=== PATIENT | female | born 1950 | race Caucasian/White ===

== ENCOUNTER 2017-11-26 08:38 | Emergency (ER) | payer MEDICARE, OTHER ==
[~2017-11-26] VITALS: Ht 167.6 cm; Wt 99.8 kg
[~2017-11-26 08:38] MED LIST: AMLO5 PO; ASPI325 PO; ASPI81CH PO; GLIP2.5ER PO; HYDCHL25 PO; INSDET100 SQ; LEVSOD50 PO; LIRA0.6P SC; LISHYD2025 PO; METF500 PO; Multivitamin1 EAC1 PO; NEBI10 PO; Plavix75 MG PO; VITB2 PO; ZESTRIL40 MG PO
[2017-11-26] MEDS ORDERED: Prednisone20 MG PO (09:20)
== END 2017-11-26 09:47 | disposition home or self-care (01) ==
LOC: ER 08:38
DX: L25.9 Unspecified contact dermatitis, unspecified cause (principal); I10 Essential (primary) hypertension; E11.9 Type 2 diabetes mellitus without complications; I25.10 Atherosclerotic heart disease of native coronary artery without angina pectoris; D64.9 Anemia, unspecified; E78.5 Hyperlipidemia, unspecified; Z79.4 Long term (current) use of insulin; Z79.899 Other long term (current) drug therapy; Z88.8 Allergy status to other drugs, medicaments and biological substances; Z95.5 Presence of coronary angioplasty implant and graft
CPT/HCPCS: J1100

== ENCOUNTER → 2018-12-13 | Outpatient (CLI) | payer MEDICARE ==
[~2018-12-13] MED LIST changes: +Prednisone20 MG PO
== END | disposition home or self-care (01) ==
LOC: LAB SHORT 18:17 → LAB 18:17
DX: K21.9 Gastro-esophageal reflux disease without esophagitis (principal)
CPT/HCPCS: 87338

== ENCOUNTER → 2019-12-10 | Outpatient (CLI) | payer MEDICARE ==
[2019-12-10 17:53] LABS: Percent Saturation 11.5 % (15.0-50.0)
[2019-12-10 17:56] LABS: Alanine Aminotransfer (ALT/SGP 23 U/L (12-78); Albumin, Blood 3.4 g/dL (3.4-5.0); Albumin/Globulin Ratio 0.9 (0.8-1.8); Alk Phos 88 U/L (50-136); Anion Gap 6 mmol/L (6-16); Aspartate Aminotrans (AST/SGOT 26 U/L (12-37); Bilirubin, Total 0.6 mg/dL (0.1-1.0); Blood Urea Nitrogen 21 mg/dL (8-24); Bun/Creatinine Ratio 22.4 (12.0-20.0); CO2, Blood 27 mmol/L (21-32); Calcium, Blood 9.1 mg/dL (8.5-10.1); Chloride, Blood 105 mmol/L (98-108); Creatinine, Blood 0.94 mg/dL (0.40-1.00); Globulin, Blood 3.7 g/dL (2.2-4.0); Glomerular Filtration Rate >60 (60-); Glucose, Blood 154 mg/dL (70-99); Potassium, Blood 4.1 mmol/L (3.5-5.5); Sodium, Blood 138 mmol/L (136-145); Total Protein, Blood 7.1 g/dL (6.4-8.2)
== END | disposition home or self-care (01) ==
LOC: LAB 15:09 → LAB SHORT 15:09
PROVIDERS: Internal Medicine Hematology & Oncology
DX: D64.9 Anemia, unspecified (principal)
CPT/HCPCS: 80053; 82728; 83540; 83550

== ENCOUNTER → 2020-06-05 | Outpatient (CLI) | payer MEDICARE, SELFPAY ==
[~2020-06-05] MED LIST changes: +INSULANPEN SC; +TICA90TA PO
[2020-06-05 20:05] LABS: Percent Saturation 20.7 % (15.0-50.0)
[2020-06-06 10:39] LABS: Stool Occult Bld Immuno 1 Negative (NEGATIVE)
== END | disposition home or self-care (01) ==
LOC: LAB 10:01 → LAB SHORT 10:01
PROVIDERS: Internal Medicine Hematology & Oncology; Student in an Organized Health Care Education/Training Program
DX: N18.2 Chronic kidney disease, stage 2 (mild) (principal); D63.1 Anemia in chronic kidney disease
CPT/HCPCS: 82274; 82728; 83540; 83550

== ENCOUNTER 2020-07-26 03:05 | Inpatient (IN) | payer MEDICARE, SELFPAY ==
[~2020-07-26] VITALS: Ht 160 cm; Wt 92.7 kg
[~2020-07-26 03:05] MED LIST changes: -INSULANPEN SC; -TICA90TA PO
[2020-07-26 03:35] LABS: Calcium, Ionized (POC) 1.16 mmol/L (1.10-1.46); Chloride (POC) 96 mmol/L (98-108); Creatinine (POC) 1.1 mg/dL (0.6-1.0); Glucose (ISTAT POC) 539 mg/dL (70-99); Hemoglobin (POC) 11.9 g/dL (12.0-16.0); Potassium (POC) 4.4 mmol/L (3.5-5.5); Sodium (POC) 131 mmol/L (135-148); Total CO2 (POC) 23 mmol/L (21-32)
[2020-07-26 03:56] LABS: BASOPHILS ABSOLUTE AUTO 0.07 K/mm3 (0.00-0.23); BASOPHILS PERCENT AUTO 1 % (0-2); EOSINOPHILS ABSOLUTE AUTO 0.49 K/mm3 (0.00-0.68); EOSINOPHILS PERCENT AUTO 6 % (0-6); Hematocrit 33.7 % (33.0-51.0); Hemoglobin 11.6 g/dL (11.5-16.0); IMMATURE GRAN ABSOLUTE AUTO 0.02 K/mm3 (0.00-0.10); IMMATURE GRAN PERCENT AUTO 0 % (0-1); LYMPHOCYTES ABSOLUTE AUTO 2.73 K/mm3 (0.84-5.20); LYMPHOCYTES PERCENT AUTO 35 % (21-46); MONOCYTES ABSOLUTE AUTO 0.68 K/mm3 (0.16-1.47); MONOCYTES PERCENT AUTO 9 % (4-13); Mean Corpuscular HGB 31.3 pg (26.0-34.0); Mean Corpuscular HGB Conc 34.4 g/dL (31.5-36.5); Mean Corpuscular Volume 91 fL (80-100); Mean Platelet Volume 10.1 fL (9.1-12.4); NEUTROPHILS ABSOLUTE AUTO 3.88 K/mm3 (1.96-9.15); NEUTROPHILS PERCENT AUTO 49 % (41-73); Platelet Count 307 K/mm3 (150-400); RDW Coefficient Variation 11.9 % (11.7-14.2); RDW Standard Deviation 39.5 fL (35.1-46.3); Red Blood Cell Count 3.71 M/mm3 (3.80-5.20); White Blood Cell Count 7.87 K/mm3 (4.00-11.30)
[2020-07-26 04:10] LABS: International Normalized Ratio 0.91; Prothrombin Time Results 9.8 Sec (9.7-11.5)
[2020-07-26 04:11] LABS: Albumin, Blood 3.2 g/dL (3.4-5.0); Albumin/Globulin Ratio 0.8 (0.8-1.8); Bilirubin, Total 0.2 mg/dL (0.1-1.0); Bun/Creatinine Ratio 27.1 (12.0-20.0); Calcium, Blood 9.4 mg/dL (8.5-10.1); Globulin, Blood 4.2 g/dL (2.2-4.0); Potassium, Blood 4.5 mmol/L (3.5-5.5); Total Protein, Blood 7.4 g/dL (6.4-8.2); Troponin I 0.398 ng/mL (0.000-0.040)
--- NOTE | 2020-07-26 07:02 | NUR ---
ADMIT/ASSESSMENT PT ARRIVED FROM SENIOR NETWORK ENGINEER AT 0517 VIA BED. DX STEMI WITH STENT PLACEMENT TO MID RCA. DR HOGAN AND DILEEP AT BEDSIDE. PT A&O. DENIES PAIN OR DISCOMFORT. LUNGS CLEAR ON ROOMAIR. RESP EVEN AND NONLABORED. HEART RATE REGULAR. BP STABLE. TR BAND TO RIGHT WRIST SITE STABLE. ARM BOARD ON. EXPLAINED TO PT TO NO USE RIGHT ARM. BT+ ABD SOFT AND NONTENDER. DENIES N/V. EKG DONE. BLOOD GLUCOSE 467, COVERED WITH 18 UNITS REGULAR INSULIN. BEDSIDE REPORT GIVEN TO ANGELI PALACIOS. PT STARTED ON NS AT 100 ML/HR. PT SITTING UP IN BED WATCHING TV.
--- NOTE | 2020-07-26 09:09 | NUR ---
ASSUMED CARE OF PT, REPORT RCV'D FROM PHILIP FELIX. PT ALERT AND ORIENTED SITTING UP IN BED. PT DENIES CURRENT CHEST PAIN. TR BAND TO RIGHT RADIAL WITH 10 CC AIR. SITE SOFT/NON-TENDER. PT OOB WITH STANDBY ASSIST TO TOILET WITH NO DIFFICULTY, PT DENIES SHORTNESS OF BREATH OR CHEST PAIN. PT CONTINUES TO BE HYPERGLYCEMIC, Q1 BLOOD SUGARS ORDERED. PT STATES SHE IS "UNABLE TO PAY $250 DEDUCTABLE" FOR HER INSULIN, WILL PUT IN PALLIATIVE CARE/SOCIAL SERVICE CONSULT. SEE FULL SHIFT ASSESSMENT
--- NOTE | 2020-07-26 10:55 | NUR ---
Echocardiogram completed.
[2020-07-26 11:58] LABS: CHOL/HDL RATIO 4.3; Cholesterol 171 mg/dL (50-200); HDL Cholesterol 40 mg/dL (>39); LDL/HDL RATIO 1.5; Low Density Lipoprotein Chol 60 mg/dL (0-110); Triglycerides 354 mg/dL (30-160); Very Low Density Lipoprot Chol 70 mg/dL (6-32)
--- NOTE | 2020-07-26 17:02 | NUR ---
NO ACUTE CHANGES THIS SHIFT. PT REMAINS ALERT/ORIENTED, CONTINUES TO DENY CHEST PAIN. PT ABLE TO INDEPENDENTLY AMBULATE TO TOILET, JUST REQUIRES ASSISTANCE WITH LINES/CORDS. VSS T/O SHIFT. PT'S BLOOD GLUCOSE WITHIN NORMAL RANGE AT THIS TIME, LAST 2 HUMULIN DOSAGES HELD. PT'S RIGHT RADIAL ACCESS SITE COVERED WITH CLEAR DRESSING AND ARMBOARD IN PLACE. PT'S SITE BLED THIS MORNING D/T PT USING ARM WHILE ON PHONE. SINCE TR BAND HAS BEEN OFF PT HAS BEEN COMPLIANT WITH NOT USING RIGHT WRIST. NO EVIDENCE OF BLEEDING, SITE REMAINS SOFT, NONTENDER WITH SMALL HEMATOMA THAT IS UNCHANGED FROM THIS AM. WILL REPORT TO ONCOMING NURSE.
[2020-07-26 18:53] LABS: Influenza A, PCR NEGATIVE (NEGATIVE); Influenza B, PCR NEGATIVE (NEGATIVE); Resp Syncytial Virus, PCR NEGATIVE (NEGATIVE); SARS-Cov-2 (COVID-19) PCR, MMC NEGATIVE (NEGATIVE)
--- NOTE | 2020-07-26 19:15 | NUR ---
SHIFT SUMMARY RECIEVED REPORT FROM ANGELI PALACIOS. ASSUMED CARE OF PATIENT. PATIENT A/O, SITTING UP IN BED. TWO RN ASSESSED RIGHT RADIAL SITE WNL, WRIST IMMOBILIZER IN PLACE. PATIENT DENIES DISCOMFORTS. VITALS STABLE. WILL REVIEW ORDERS AND TREAT PRESCRIBED.
--- NOTE | 2020-07-27 | NUR ---
REASSESSMENT NO ACUTE CHANGES FROM PREVIOUS ASSESSMENT. WRIST IMMOBILIZER REMAINS TO RIGHT WRIST WITH ACUTE CHANGES. VITALS STABLE. FLUIDS REMOVED FROM BEDSIDE AND EDUCATED PATIENT REGARDING CURRENT NPO STATUS UNTIL AFTER AM PROCEDURE. PATIENT VERBALIZED UNDERSTANDING. PATIENT DECLINED NEEDS OR DISCOMFORTS. CALL LIGHT WITHIN REACH.
--- NOTE | 2020-07-27 04:00 | NUR ---
REASSESSMENT NO ACUTE CHANGES FROM PREVIOUS ASSESSMENT. PATIENT IN BED WITH EYES CLOSED, NO S/S OF DISTRESS. VITALS STABLE. WRIST IMMOBILIZER TO RIGHT WRIST. CALL LIGHT IN REACH.
[2020-07-27 04:09] LABS: BASOPHILS ABSOLUTE AUTO 0.07 K/mm3 (0.00-0.23); BASOPHILS PERCENT AUTO 1 % (0-2); EOSINOPHILS ABSOLUTE AUTO 0.66 K/mm3 (0.00-0.68); EOSINOPHILS PERCENT AUTO 8 % (0-6); Hematocrit 32.5 % (33.0-51.0); Hemoglobin 11.2 g/dL (11.5-16.0); IMMATURE GRAN ABSOLUTE AUTO 0.04 K/mm3 (0.00-0.10); IMMATURE GRAN PERCENT AUTO 1 % (0-1); LYMPHOCYTES ABSOLUTE AUTO 2.27 K/mm3 (0.84-5.20); LYMPHOCYTES PERCENT AUTO 29 % (21-46); MONOCYTES PERCENT AUTO 8 % (4-13); Mean Corpuscular HGB 31.6 pg (26.0-34.0); Mean Corpuscular HGB Conc 34.5 g/dL (31.5-36.5); Mean Corpuscular Volume 92 fL (80-100); Mean Platelet Volume 9.7 fL (9.1-12.4); NEUTROPHILS ABSOLUTE AUTO 4.25 K/mm3 (1.96-9.15); NEUTROPHILS PERCENT AUTO 54 % (41-73); Platelet Count 255 K/mm3 (150-400); RDW Coefficient Variation 12.1 % (11.7-14.2); RDW Standard Deviation 40.9 fL (35.1-46.3); Red Blood Cell Count 3.54 M/mm3 (3.80-5.20); White Blood Cell Count 7.89 K/mm3 (4.00-11.30)
[2020-07-27 04:33] LABS: Alanine Aminotransfer (ALT/SGP 23 U/L (12-78); Albumin, Blood 2.9 g/dL (3.4-5.0); Albumin/Globulin Ratio 0.7 (0.8-1.8); Alk Phos 79 U/L (50-136); Anion Gap 7 mmol/L (6-16); Aspartate Aminotrans (AST/SGOT 30 U/L (12-37); Bilirubin, Total 0.3 mg/dL (0.1-1.0); Blood Urea Nitrogen 16 mg/dL (8-24); Bun/Creatinine Ratio 19.3 (12.0-20.0); CO2, Blood 26 mmol/L (21-32); Calcium, Blood 9.4 mg/dL (8.5-10.1); Chloride, Blood 106 mmol/L (98-108); Creatinine, Blood 0.83 mg/dL (0.40-1.00); Globulin, Blood 3.9 g/dL (2.2-4.0); Glomerular Filtration Rate >60 (60-); Glucose, Blood 202 mg/dL (70-99); Potassium, Blood 3.9 mmol/L (3.5-5.5); Sodium, Blood 139 mmol/L (136-145); Total Protein, Blood 6.8 g/dL (6.4-8.2)
--- NOTE | 2020-07-27 06:06 | NUR ---
SHIFT SUMMARY PATIENT LAYING ON RIGHT SIDE, EYES CLOSED, NO S/S OF DISTRESS. VITALS STABLE. 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 WRIST IMMOBILIZER TO RIGHT WRIST IN PLACE. LEFT AC IV REMAINS SL AND INTACT. WILL CONTINUE TO MONITOR AND GIVE REPORT TO ONCOMING RN.
--- NOTE | 2020-07-27 07:30 | NUR ---
ASSUMED CARE: PT LAYING IN BED, TALKING TO STAFF. RADIAL SITE WITH MINIMAL BRUISE, NO FURTHER SIGNS OF SWELLING OR HEMATOMA. NSR ON TELE AT THIS TIME. DENIES NEEDS OR CONCERNS. SBA TO COMMODE
--- NOTE | 2020-07-27 08:31 | NUR ---
DR BOWER CAME TO SEE PT THIS AM. REVIEWED BLOOD SUGAR AND ORDERS WITH HIM. DR STATED OK TO HOLD AM INSULIN DUE TO CBG 220 AND NIGHT INSULIN WAS GIVEN. PT AGREEABLE TO THIS PLAN WELL
--- NOTE | 2020-07-27 10:29 | NUR ---
PT TAKEN TO CLOSING SPECIALIST VIA BED BY 2 HEART CENTER STAFF
--- NOTE | 2020-07-27 12:05 | NUR ---
PT RETURNED FROM ORDER PROCESSING MANAGER VIA BED WITH NEW STENT VIA LAD. RIGHT RADIAL SITE WITH TR BAND IN PLACE WITH NO SIGN OF BLEEDING, OOZING OR SWELLING. VSS AT THIS TIME. NSR ON CARDIAC MONITORING. DENIES NEEDS OR CONCERNS. UPDATING FAMILY VIA CELL PHONE
--- NOTE | 2020-07-27 13:17 | NUR ---
CALL TO PCU NURSE ELVIA TO GIVE REPORT ON PT. PT'S TR BAND IN PLACE WITH 10CC STILL REMAINING. PT TRANSFERRED TO PCU 6 VIA BED AND PT STATED SHE WAS GOING TO NOTIFY HER FAMILY OF ROOM CHANGE.
--- NOTE | 2020-07-27 14:46 | NUR ---
ASSUMED CARE TRANSFER FROM ICU AT 1310. PT ALERT AND OREINTED, VITAL SIGNS STABLE. ON ROOM AIR SATING ABOVE 92%. R RADIAL SITE WITH TR BAND IN PLACE. SMALL HEMATOMA AND BRUISING PROXIMAL FROM TR BAND ON WRIST. PT DENIES PAIN. WILL CONTINUE TO MONITOR.
--- NOTE | 2020-07-27 17:56 | NUR ---
SHIFT SUMMARY: PT IS ALERT AND ORIENTED X4. ON ROOM AIR. TELE SHOWING SINUS RHYTHM WITH HR 60-70'S. VITAL SIGNS STABLE. DENIES CHEST PAIN, AND ANY NUMBNESS OR TINGLING. R RADIAL SIGHT FROM ANGIO WITH SLIGHT HEMATOMA ON ARRIVAL PROXIMAL FROM TR BAND ON WRIST. HAS REMAINED THE SAME THROUGHOUT THE REST OF THE NIGHT. CLEAN DRY AND INTACT. NONTENDER. TR BAND AIR HAS BEEN REMOVED. TR BAND STILL IN PLACE. L IV SALINE LOCKED AND FLUSHING WELL. WILL CONTINUE TO MONITOR.
--- NOTE | 2020-07-28 06:12 | NUR ---
SHIFT SUMMARY PATIENT IS ALERT AND ORIENTED. PATIENT SBA TO BATHROOM AND INDEPENDENT WITH REPOSITIONING IN BED. REMOVED TR BAND @2054, PATIENT HAS FULL SENSATION, FINGERS WARM AND PINK, SMALL HEMATOMA UNCHANGED. PATIENT WEARING SPLINT ON RIGHT ARM, PATIENT TEACHING PROVIDED ON USE OF RIGHT ARM. 02 SATS >94% ON RA. VSS, NO ACUTE CHANGES. CALL LIGHT IN REACH.
[2020-07-28] MEDS ORDERED: TICA90TA PO (10:46)
[2020-07-28] MEDS ORDERED: INSULANPEN SC (10:46)
--- NOTE | 2020-07-28 12:00 | NUR ---
Spiritual care visit conducted. Patient tells me that she will DC soon and that her visit to [facility] has been a success. She then talks at length about her family unit complications, her family history and her spiritual journey (patient is currently Karen). Patient gets very tearful about the status of her two sons. I provide therapeutic listening, pastoral primary counselor and prayer. Patient responds well and shows signs of reduced stress about family matters and her sons. I will continue to remain available to patient and family.
--- NOTE | 2020-07-28 12:30 | NUR ---
DISCHARGE: PT IS ALERT AND OREINTED X4. ON ROOM AIR. TELE SHOWING SINUS RHYTHM. RIGHT RADIAL SIGHT CLEAN DRY AND INTACT. BRACE IN PLACE. NO ACTUE CHANGES. VITAL SIGNS STABLE. WALKING TO AND FROM BATHROOM THIS AFTERNOON. DISCHARGE INSTRUCTIONS DISCUSSED AND QUESTIONS ANSWERED. TELE AND IV REMOVED.
== END 2020-07-28 13:01 | disposition home or self-care (01) | DRG 247 ==
LOC: ER 03:05 → ICUW 03:29 → PCU 07-27 13:19
PROVIDERS: Emergency Medicine; ADMIT Internal Medicine Interventional Cardiology
PROC: 4A023N7 Measurement of Cardiac Sampling and Pressure, Left Heart, Percutaneous Approach (ICD-10-PCS; principal; 2020-07-26)
PROC: 027034Z Dilation of Coronary Artery, One Artery with Drug-eluting Intraluminal Device, Percutaneous Approach (ICD-10-PCS; 2020-07-26)
PROC: B211YZZ Fluoroscopy of Multiple Coronary Arteries using Other Contrast (ICD-10-PCS; 2020-07-26)
PROC: 027034Z Dilation of Coronary Artery, One Artery with Drug-eluting Intraluminal Device, Percutaneous Approach (ICD-10-PCS; 2020-07-27)
DX: I21.19 ST elevation (STEMI) myocardial infarction involving other coronary artery of inferior wall (principal); E87.1 Hypo-osmolality and hyponatremia; I15.2 Hypertension secondary to endocrine disorders; Z79.82 Long term (current) use of aspirin; E03.9 Hypothyroidism, unspecified; Z79.84 Long term (current) use of oral hypoglycemic drugs; E11.65 Type 2 diabetes mellitus with hyperglycemia; E78.5 Hyperlipidemia, unspecified; I25.10 Atherosclerotic heart disease of native coronary artery without angina pectoris
CPT/HCPCS: 0241U; 36415; 76937; 80047; 80053; 80061; 82947; 83036; 83690; 83880; 84484; 85014; 85025; 85347; 85610; 93005; 93010; 93308; 93454; 93458; 96374-59; 99152; 99153; 99285-25; A9270; C1725; C1769; C1874; C1887; C1894; C9600; C9606; J1644; J1650; J1815; J2250; J3010; J7030; J7050; Q9967

== ENCOUNTER → 2020-09-10 | Outpatient (CLI) | payer MEDICARE ==
[~2020-09-10] MED LIST changes: +INSULANPEN SC; +TICA90TA PO
[2020-09-10 15:00] LABS: BASOPHILS ABSOLUTE AUTO 0.07 K/mm3 (0.00-0.23); BASOPHILS PERCENT AUTO 1 % (0-2); EOSINOPHILS ABSOLUTE AUTO 0.58 K/mm3 (0.00-0.68); EOSINOPHILS PERCENT AUTO 7 % (0-6); Hematocrit 33.8 % (33.0-51.0); Hemoglobin 10.9 g/dL (11.5-16.0); IMMATURE GRAN ABSOLUTE AUTO 0.07 K/mm3 (0.00-0.10); IMMATURE GRAN PERCENT AUTO 1 % (0-1); LYMPHOCYTES ABSOLUTE AUTO 1.61 K/mm3 (0.84-5.20); LYMPHOCYTES PERCENT AUTO 20 % (21-46); MONOCYTES ABSOLUTE AUTO 0.55 K/mm3 (0.16-1.47); MONOCYTES PERCENT AUTO 7 % (4-13); Mean Corpuscular HGB 30.7 pg (26.0-34.0); Mean Corpuscular HGB Conc 32.2 g/dL (31.5-36.5); Mean Corpuscular Volume 95 fL (80-100); Mean Platelet Volume 9.4 fL (9.1-12.4); NEUTROPHILS ABSOLUTE AUTO 5.18 K/mm3 (1.96-9.15); NEUTROPHILS PERCENT AUTO 64 % (41-73); Platelet Count 328 K/mm3 (150-400); RDW Coefficient Variation 12.6 % (11.7-14.2); Red Blood Cell Count 3.55 M/mm3 (3.80-5.20); White Blood Cell Count 8.06 K/mm3 (4.00-11.30)
== END | disposition home or self-care (01) ==
LOC: LAB 10:30 → LAB SHORT 10:30
PROVIDERS: Internal Medicine Hematology & Oncology
DX: N18.9 Chronic kidney disease, unspecified (principal); D63.1 Anemia in chronic kidney disease
CPT/HCPCS: 85025

== ENCOUNTER 2021-03-17 14:38 | Inpatient (IN) | payer MEDICARE ==
[~2021-03-17] VITALS: Ht 167.6 cm; Wt 89.5 kg
[~2021-03-17 14:38] MED LIST changes: -ASPI81CH PO; +Aspir 8181 MG PO; +EUTHYROX50 MCG PO; +GLUCOPHAGE1000 M1 PO; -LEVSOD50 PO; -METF500 PO
[2021-03-17 15:13] LABS: BASOPHILS ABSOLUTE AUTO 0.07 K/mm3 (0.00-0.23); BASOPHILS PERCENT AUTO 1 % (0-2); EOSINOPHILS ABSOLUTE AUTO 0.18 K/mm3 (0.00-0.68); EOSINOPHILS PERCENT AUTO 1 % (0-6); Hematocrit 34.2 % (33.0-51.0); Hemoglobin 11.3 g/dL (11.5-16.0); IMMATURE GRAN ABSOLUTE AUTO 0.08 K/mm3 (0.00-0.10); IMMATURE GRAN PERCENT AUTO 1 % (0-1); LYMPHOCYTES ABSOLUTE AUTO 0.48 K/mm3 (0.84-5.20); LYMPHOCYTES PERCENT AUTO 4 % (21-46); MONOCYTES ABSOLUTE AUTO 0.33 K/mm3 (0.16-1.47); MONOCYTES PERCENT AUTO 3 % (4-13); Mean Corpuscular HGB 31.2 pg (26.0-34.0); Mean Corpuscular Volume 95 fL (80-100); Mean Platelet Volume 9.5 fL (9.1-12.4); NEUTROPHILS ABSOLUTE AUTO 11.53 K/mm3 (1.96-9.15); NEUTROPHILS PERCENT AUTO 91 % (41-73); Platelet Count 262 K/mm3 (150-400); RDW Coefficient Variation 13.3 % (11.7-14.2); RDW Standard Deviation 46.1 fL (35.1-46.3); Red Blood Cell Count 3.62 M/mm3 (3.80-5.20); White Blood Cell Count 12.67 K/mm3 (4.00-11.30)
[2021-03-17 15:36] LABS: Albumin, Blood 3.2 g/dL (3.4-5.0); Albumin/Globulin Ratio 0.7 (0.8-1.8); Bilirubin, Total 0.7 mg/dL (0.1-1.0); Bun/Creatinine Ratio 15.9 (12.0-20.0); Calcium, Blood 8.8 mg/dL (8.5-10.1); Creatinine, Blood 1.82 mg/dL (0.40-1.00); Globulin, Blood 4.5 g/dL (2.2-4.0); Potassium, Blood 4.4 mmol/L (3.5-5.5); Total Protein, Blood 7.7 g/dL (6.4-8.2); Troponin I 0.032 ng/mL (0.000-0.040)
[2021-03-17] MEDS ORDERED: METOPROLOL SUCC25 MG PO (19:18)
[2021-03-17] MEDS ORDERED: K-Dur10 MEQ PO (19:19)
[2021-03-17] MEDS ORDERED: FUROSEMIDE20 MG PO (19:19)
[2021-03-17 19:55] LABS: International Normalized Ratio 1.01; Prothrombin Time Results 10.9 Sec (9.7-11.5)
[2021-03-17 22:38] LABS: SARS-Cov-2 (COVID-19) PCR, MMC Negative (NEGATIVE)
[2021-03-17 22:40] LABS: CHOL/HDL RATIO 4.5; Cholesterol 204 mg/dL (50-200); HDL Cholesterol 45 mg/dL (>39); LDL/HDL RATIO 2.5; Low Density Lipoprotein Chol 113 mg/dL (0-110); Triglycerides 231 mg/dL (30-160); Very Low Density Lipoprot Chol 46 mg/dL (6-32)
[2021-03-17 22:54] LABS: Source, Urine Catheter
[2021-03-17 22:59] LABS: Bilirubin, Urine Neg (Neg); Blood, Urine 2+ (Neg); Glucose Qualitative, Urine Neg (Neg); Ketones, Urine Neg (Neg); Leukocyte Esterase, Urine 2+ (Neg); Nitrite, Urine Neg (Neg); Protein, Urine 2+ (Neg); Specific Gravity, Urine 1.005 (1.003-1.022); Urobilinogen, Urine NORM (Normal)
[2021-03-17 23:13] LABS: Appearance, Urine Hazy (Clear); Bacteria Many /hpf; Color, Urine Yellow (P-Yellow); Red Blood Cells, Urine 0-2 /hpf (0-2); Squamous Epithelial Cells Few /hpf (Few); White Blood Cells, Urine TNTC /hpf (0-5)
[2021-03-17] MEDS ORDERED: CLOP75 PO (23:42)
--- NOTE | 2021-03-18 | NUR ---
RECEIVED REPORT FROM OWENED RN. PT TRANSPORTED TO MEDICAL FLOOR, SETTLED INTO ROOM. VS TAKEN,WNL. ORIENTED TO USE OF CALL LIGHT. NO ACUTE NEEDS ASSESSED AT THIS TIME. CALL LIGHT, POSSESSIONS IN REACH.
[2021-03-18 04:42] LABS: BASOPHILS ABSOLUTE AUTO 0.04 K/mm3 (0.00-0.23); BASOPHILS PERCENT AUTO 0 % (0-2); EOSINOPHILS ABSOLUTE AUTO 0.15 K/mm3 (0.00-0.68); EOSINOPHILS PERCENT AUTO 1 % (0-6); Hematocrit 30.3 % (33.0-51.0); Hemoglobin 10.4 g/dL (11.5-16.0); IMMATURE GRAN ABSOLUTE AUTO 0.08 K/mm3 (0.00-0.10); IMMATURE GRAN PERCENT AUTO 1 % (0-1); LYMPHOCYTES ABSOLUTE AUTO 0.97 K/mm3 (0.84-5.20); LYMPHOCYTES PERCENT AUTO 7 % (21-46); MONOCYTES ABSOLUTE AUTO 1.24 K/mm3 (0.16-1.47); MONOCYTES PERCENT AUTO 9 % (4-13); Mean Corpuscular HGB 31.2 pg (26.0-34.0); Mean Corpuscular HGB Conc 34.3 g/dL (31.5-36.5); Mean Corpuscular Volume 91 fL (80-100); Mean Platelet Volume 9.9 fL (9.1-12.4); NEUTROPHILS ABSOLUTE AUTO 11.97 K/mm3 (1.96-9.15); NEUTROPHILS PERCENT AUTO 83 % (41-73); Platelet Count 256 K/mm3 (150-400); RDW Coefficient Variation 13.2 % (11.7-14.2); RDW Standard Deviation 43.7 fL (35.1-46.3); Red Blood Cell Count 3.33 M/mm3 (3.80-5.20); White Blood Cell Count 14.45 K/mm3 (4.00-11.30)
[2021-03-18 05:09] LABS: Albumin, Blood 2.9 g/dL (3.4-5.0); Albumin/Globulin Ratio 0.7 (0.8-1.8); Bilirubin, Total 0.6 mg/dL (0.1-1.0); Bun/Creatinine Ratio 17.1 (12.0-20.0); Calcium, Blood 8.4 mg/dL (8.5-10.1); Creatinine, Blood 2.1 mg/dL (0.40-1.00); Globulin, Blood 4.4 g/dL (2.2-4.0); Potassium, Blood 3.6 mmol/L (3.5-5.5); Total Protein, Blood 7.3 g/dL (6.4-8.2)
--- NOTE | 2021-03-18 07:20 | NUR ---
SHIFT SUMMARY PT ASLEEP, IN NAD. NO ACUTE NEEDS ASSESSED AT THIS TIME. VS REVIEWED,WNL. APPEARED TO SLEEP WELL OVERNIGHT. NO C/O CP, PRESSURE,SOB. O2 SATS STABLE. NO ACUTE CHANGES TO REPORT. CALL LIGHT, POSSESSIONS IN REACH. INDEPENDENT IN ROOM. REPORT GIVEN TO SUNNI JERNIGAN.
--- NOTE | 2021-03-18 18:31 | NUR ---
SHIFT SUMMARY THE PATIENT IS ALERT AND ORIENTED, AND WILL CALL APPROPRIATELY. THE PATIENT IS INDEPENDENT IN THE ROOM. THEY CAN BECOME ANXIOUS AT TIMES DUE TO STRESS, SEEMS TO BE SITUATIONAL WITH FAMILY. THE PATIENT IS ON TELE SINUS RHYTHM IN THE 70'S, AND ON RA. THE PATIENT HAS DENIED ANY CHEST PAIN OR SHORT OF BREATH THIS SHIFT. THE PATIENT IS BEING OBSERVED OVERNIGHT. THE PATIENT MAY POSSIBLY DISCHARGE TOMORROW IF ALL CHECKS OUT.
[2021-03-19 04:57] LABS: BASOPHILS ABSOLUTE AUTO 0.05 K/mm3 (0.00-0.23); BASOPHILS PERCENT AUTO 1 % (0-2); EOSINOPHILS ABSOLUTE AUTO 0.12 K/mm3 (0.00-0.68); EOSINOPHILS PERCENT AUTO 1 % (0-6); Hematocrit 30.7 % (33.0-51.0); Hemoglobin 10.4 g/dL (11.5-16.0); IMMATURE GRAN ABSOLUTE AUTO 0.06 K/mm3 (0.00-0.10); IMMATURE GRAN PERCENT AUTO 1 % (0-1); LYMPHOCYTES ABSOLUTE AUTO 0.92 K/mm3 (0.84-5.20); LYMPHOCYTES PERCENT AUTO 10 % (21-46); MONOCYTES ABSOLUTE AUTO 0.81 K/mm3 (0.16-1.47); MONOCYTES PERCENT AUTO 9 % (4-13); Mean Corpuscular HGB 30.9 pg (26.0-34.0); Mean Corpuscular HGB Conc 33.9 g/dL (31.5-36.5); Mean Corpuscular Volume 91 fL (80-100); Mean Platelet Volume 9.7 fL (9.1-12.4); NEUTROPHILS ABSOLUTE AUTO 7.07 K/mm3 (1.96-9.15); NEUTROPHILS PERCENT AUTO 78 % (41-73); Platelet Count 243 K/mm3 (150-400); RDW Coefficient Variation 12.9 % (11.7-14.2); RDW Standard Deviation 42.1 fL (35.1-46.3); Red Blood Cell Count 3.37 M/mm3 (3.80-5.20); White Blood Cell Count 9.03 K/mm3 (4.00-11.30)
[2021-03-19 05:57] LABS: Albumin, Blood 2.7 g/dL (3.4-5.0); Anion Gap 9 mmol/L (6-16); Blood Urea Nitrogen 28 mg/dL (8-24); Bun/Creatinine Ratio 19.7 (12.0-20.0); CO2, Blood 24 mmol/L (21-32); Calcium, Blood 8.5 mg/dL (8.5-10.1); Chloride, Blood 100 mmol/L (98-108); Creatinine, Blood 1.42 mg/dL (0.40-1.00); Glomerular Filtration Rate 37 (60-); Glucose, Blood 226 mg/dL (70-99); Phosphorus, Blood 3.2 mg/dL (2.5-4.9); Potassium, Blood 3.7 mmol/L (3.5-5.5); Sodium, Blood 133 mmol/L (136-145)
--- NOTE | 2021-03-19 08:01 | NUR ---
slept well. evening temp resolved with tylenol. No complaints of discomfort or SOB
[2021-03-19] MEDS ORDERED: VISBIOME 112.51 EACH PO (11:04)
[2021-03-19] MEDS ORDERED: CEPH500 PO (11:04)
== END 2021-03-19 13:03 | disposition home or self-care (01) | DRG 872 ==
LOC: ER 14:38 → MEDS 14:39 → ER 23:40 → MEDS 23:53
PROVIDERS: Emergency Medicine Emergency Medical Services; Family Medicine; Physician Assistant; ADMIT Hospitalist
DX: A41.51 Sepsis due to Escherichia coli [E. coli] (principal); N17.9 Acute kidney failure, unspecified; N39.0 Urinary tract infection, site not specified; E87.1 Hypo-osmolality and hyponatremia; I24.8 Other forms of acute ischemic heart disease; I50.32 Chronic diastolic (congestive) heart failure; D63.8 Anemia in other chronic diseases classified elsewhere; I25.10 Atherosclerotic heart disease of native coronary artery without angina pectoris; E11.9 Type 2 diabetes mellitus without complications; E03.9 Hypothyroidism, unspecified; Z79.899 Other long term (current) drug therapy; Z79.82 Long term (current) use of aspirin; I25.2 Old myocardial infarction; Z95.5 Presence of coronary angioplasty implant and graft; Z20.822 Contact with and (suspected) exposure to COVID-19; I10 Essential (primary) hypertension; Z79.4 Long term (current) use of insulin; Z88.8 Allergy status to other drugs, medicaments and biological substances; M54.9 Dorsalgia, unspecified
CPT/HCPCS: 36415; 51798; 71045; 76770; 80053; 80061; 80069; 81001; 82570; 82947; 83605; 83690; 83880; 84145; 84300; 84443; 84484; 84540; 85025; 85610; 85730; 87077; 87086; 87186; 93005; 93010; 93306; 96361; 96365; 96372; 96374; 96375; 99284-25; A9270; G0378; J0696; J1650; J1815; J1940; J7030; U0004

== ENCOUNTER 2022-11-13 09:04 | Inpatient (IN) | payer OTHER ==
[~2022-11-13] VITALS: Ht 167.6 cm; Wt 90.0 kg
[~2022-11-13 09:04] MED LIST changes: +ASPI325EC PO; -Aspir 8181 MG PO; +BRILINTA60 MG PO; +CEPH500 PO; +CLOP75 PO; +FUROSEMIDE20 MG PO; +K-Dur10 MEQ PO; +METOPROLOL SUCC25 MG PO; -TICA90TA PO; +VISBIOME 112.51 EACH PO
[2022-11-13 10:04] LABS: BASOPHILS ABSOLUTE AUTO 0.07 K/mm3 (0.00-0.23); BASOPHILS PERCENT AUTO 1 % (0-2); EOSINOPHILS ABSOLUTE AUTO 0.71 K/mm3 (0.00-0.68); EOSINOPHILS PERCENT AUTO 8 % (0-6); Hematocrit 38.5 % (33.0-51.0); Hemoglobin 13.4 g/dL (11.5-16.0); IMMATURE GRAN ABSOLUTE AUTO 0.05 K/mm3 (0.00-0.10); IMMATURE GRAN PERCENT AUTO 1 % (0-1); LYMPHOCYTES ABSOLUTE AUTO 2.48 K/mm3 (0.84-5.20); LYMPHOCYTES PERCENT AUTO 26 % (21-46); MONOCYTES ABSOLUTE AUTO 0.67 K/mm3 (0.16-1.47); MONOCYTES PERCENT AUTO 7 % (4-13); Mean Corpuscular HGB 30.9 pg (26.0-34.0); Mean Corpuscular HGB Conc 34.8 g/dL (31.5-36.5); Mean Corpuscular Volume 89 fL (80-100); Mean Platelet Volume 9.6 fL (9.1-12.4); NEUTROPHILS PERCENT AUTO 58 % (41-73); Platelet Count 329 K/mm3 (150-400); RDW Coefficient Variation 12.7 % (11.7-14.2); RDW Standard Deviation 41.5 fL (35.1-46.3); Red Blood Cell Count 4.34 M/mm3 (3.80-5.20); White Blood Cell Count 9.38 K/mm3 (4.00-11.30)
[2022-11-13 10:20] LABS: Albumin, Blood 3.4 g/dL (3.4-5.0); Albumin/Globulin Ratio 0.7 (0.8-1.8); Bilirubin, Total 0.6 mg/dL (0.1-1.0); Bun/Creatinine Ratio 20.4 (12.0-20.0); Calcium, Blood 9.7 mg/dL (8.5-10.1); Creatinine, Blood 1.13 mg/dL (0.40-1.00); Globulin, Blood 4.6 g/dL (2.2-4.0); Potassium, Blood 4.3 mmol/L (3.5-5.5)
[2022-11-13] MEDS ORDERED: K-Dur10 MEQ PO (10:36)
[2022-11-13] MEDS ORDERED: LISINOPRIL (ZESTRIL) PO (10:37)
[2022-11-13] MEDS ORDERED: METF500 PO (10:39)
[2022-11-13] MEDS ORDERED: ALLO100 PO (10:41)
[2022-11-13] MEDS ORDERED: PRAVASTATIN SOD40 MG PO (10:42)
[2022-11-13] MEDS ORDERED: FURO20 PO (10:42)
[2022-11-13] MEDS ORDERED: CLOP75 PO (10:43)
[2022-11-13] MEDS ORDERED: JARDIANCE10 MG PO (10:44)
[2022-11-13] MEDS ORDERED: INSULANI SC (10:45)
[2022-11-13 13:27] LABS: International Normalized Ratio 0.98; Prothrombin Time Results 10.3 Sec (9.7-11.5)
[2022-11-13 14:25] VITALS: BP 164/82
[2022-11-13 15:08] LABS: CHOL/HDL RATIO 5.2; Cholesterol 263 mg/dL (50-200); HDL Cholesterol 51 mg/dL (>39); LDL/HDL RATIO 3.3; Low Density Lipoprotein Chol 167 mg/dL (0-110); Triglycerides 223 mg/dL (30-160); Very Low Density Lipoprot Chol 44 mg/dL (6-32)
[2022-11-13 16:18] VITALS: BP 152/65
--- NOTE | 2022-11-13 17:18 | NUR ---
PT ADMITTED TO PCU AROUND 1415 FROM ER. PT DX WITH NSTEMI, DENIES CHEST PAIN/PRESSURE. PT A&OX4, PLEASANT AND COOPERATIVE WITH CARE. LUNG SOUNDS CLEAR THROUGHOUT. PT ON RA SATING ABOVE 94%. HR SR 60'S, ON HEPARIN DRIP. PT STATED SHE HAS HAD A RASH ON HER CHEST, BLE, AND BUTTOCKS FOR OVER A MONTH NOW. PT THINKS RASH IS FROM ZINC SUPPLEMENT SHE WAS TAKING. TROPONINS TRENDING UP, DR. THOMAS NOTIFIED & CARDIOLOGY CONSULT PLACED PER DR. THOMAS. PT TO REMAIN NPO. PT RESTING IN BED, CALL LIGHT WITHIN REACH.
--- NOTE | 2022-11-13 17:49 | NUR ---
THIS RN PLACED CALL TO DR. LOYOLA. UPDATED ON CONSULT AND PATIENT STATUS. DR. LOYOLA TO SEE PATIENT. THIS RN HAS REVIEWED ALL EDITOR NEWS DOCUMENTATION.
--- NOTE | 2022-11-13 18:52 | NUR ---
PATIENT TROPONIN RESULTED, CALLED IN. DR. LOYOLA BY UNIT, ALTHOUGH UNABLE TO SEE PATIENT AT THIS TIME. THIS RN ASKED ABOUT PATIENT AND DIET ORDERS. PATIENT OKAY TO EAT TONIGHT. ADA/CARDIAC DIET ORDERS IN PLACE. PLAN FOR NPO AT MIDNIGHT FOR POSSIBLE CARDIAC INTERVENTION.
[2022-11-13 19:17] VITALS: BP 146/73
--- NOTE | 2022-11-13 23:12 | NUR ---
ASSUMPTION OF CARE: PATIENT IS ALERT AND ORIENTED, PLEASANT, COOPERATIVE WITH CARE. DENIES N/T, NEUROPATHY. PATIENT WITH SLIGHT DIZZINESS WITH STANDING, SUBSIDES. DENIES CHEST PAIN PRESSURE OR SOB. TELE IN PLACE, WILL CONTINUE TO MONITOR CBG'S ELEVATED RECIEVED NIGHT DOSE OF LANTUS AT 55 UNITS. 0000 CBG TONIGHT. PATIENT REFUSED BOWEL CARE MEDS WILL AWAIT UNTIL TOMORROW IF NEEDED SHE ENDORSES. CONTINENT, CALLED PROVIDER IN REGARDS TO STILL INCREASING TROP. NO CHANGE IN PATIENT STATUS. CONTINUE TO TREND TROP WILL MONITOR. NO NEW ORDERS. VITAL SIGNS IMPROVING. NO CONCERNS AT THIS TIME WILL MAKE 0000 IN CASE OF CARDIOLOGY WANTING TO CATHETERIZE.
[2022-11-14] VITALS (14 sets, daily range): BP systolic 138–168; BP diastolic 51–94
[2022-11-14 02:41] LABS: BASOPHILS ABSOLUTE AUTO 0.11 K/mm3 (0.00-0.23); BASOPHILS PERCENT AUTO 1 % (0-2); EOSINOPHILS ABSOLUTE AUTO 1.07 K/mm3 (0.00-0.68); EOSINOPHILS PERCENT AUTO 11 % (0-6); Hematocrit 32.7 % (33.0-51.0); Hemoglobin 11.1 g/dL (11.5-16.0); IMMATURE GRAN ABSOLUTE AUTO 0.05 K/mm3 (0.00-0.10); IMMATURE GRAN PERCENT AUTO 1 % (0-1); LYMPHOCYTES ABSOLUTE AUTO 3.15 K/mm3 (0.84-5.20); LYMPHOCYTES PERCENT AUTO 33 % (21-46); MONOCYTES ABSOLUTE AUTO 0.77 K/mm3 (0.16-1.47); MONOCYTES PERCENT AUTO 8 % (4-13); Mean Corpuscular HGB Conc 33.9 g/dL (31.5-36.5); Mean Corpuscular Volume 91 fL (80-100); Mean Platelet Volume 9.7 fL (9.1-12.4); NEUTROPHILS ABSOLUTE AUTO 4.37 K/mm3 (1.96-9.15); NEUTROPHILS PERCENT AUTO 46 % (41-73); Platelet Count 274 K/mm3 (150-400); RDW Coefficient Variation 13.1 % (11.7-14.2); RDW Standard Deviation 42.6 fL (35.1-46.3); Red Blood Cell Count 3.58 M/mm3 (3.80-5.20); White Blood Cell Count 9.52 K/mm3 (4.00-11.30)
[2022-11-14 03:44] LABS: Albumin, Blood 2.9 g/dL (3.4-5.0); Albumin/Globulin Ratio 0.8 (0.8-1.8); Bilirubin, Total 0.2 mg/dL (0.1-1.0); Bun/Creatinine Ratio 26.1 (12.0-20.0); Calcium, Blood 8.9 mg/dL (8.5-10.1); Creatinine, Blood 1.15 mg/dL (0.40-1.00); Globulin, Blood 3.8 g/dL (2.2-4.0); Potassium, Blood 3.8 mmol/L (3.5-5.5); Total Protein, Blood 6.7 g/dL (6.4-8.2)
--- NOTE | 2022-11-14 06:23 | NUR ---
END OF SHIFT: ONLY CHANGES TO ASSUMPTION OF CARE ARE INCREASING TROP LEVELS LAST 1061, DENIES CHEST PAIN PRESSURE IS SOB AT REST. PATIENT HAS BEEN IN THE 50-60'S WHILE SLEEPING THIS AM WHICH IS SLIGHTLY LOWER THAN ASSUMPTION. BLOOD PRESSURE SLIGHTLY HYPERTENSIVE. PATIENT HAS BEEN NPO SINCE MIDNIGHT. WILL CONTINUE TO MONITOR UNTIL SHIFT CHANGE STILL ON RA AT 95%.
--- NOTE | 2022-11-14 07:39 | NUR ---
AM NOTE: PATIENT ALERT AND ORIENTED X4. DENIES NUMBNESS/TINGLING. PERRLA. OCCASIONAL HOT FLASHES. ON ROOM AIR SATING ABOVE 95%. LUNGS SOUNDING CLEAR. DENIES COUGH. TELE SHOWING SR WITH HR 60'S. DENIES CHEST PAIN/PRESSURE/PALPITATIONS. BP ELEVATED. HEPARIN GTT INFUSING PER EMAR. PPP. NO SIGNS OF EDEMA. PLAN FOR ECHO TODAY. NPO PENDING CARDIOLOGY CONSULT. TRENDING TROPONINS. DENIES ABDOMINAL PAIN/NAUSEA. SBA TO BATHROOM TO VOID. VOIDING WNL. NPO. RASH SCATTERED THROUGHOUT, MILD REDNESS, OCCASIONALLY ITCHY. PATIENT STATES SHE BELIEVE RASH IS FROM A ZINC SUPPELMENT SHE WAS TAKING. CALL LIGHT IN REACH. DISCUSSED EDUCATION ON USING CALL LIGHT AND FALL RISK/BLEEDING RISK WITH HEPARIN GTT. PATIENT VERBALIZED SHE WILL USE CALL LIGHT FOR ASSISTANCE.
--- NOTE | 2022-11-14 09:43 | NUR ---
UPDATE: DR. THOMAS TO BEDSIDE. DISCUSSED PLAN OF CARE WITH PATIENT. DR. LOYOLA TO BEDSIDE AND PLAN FOR ANGIOGRAM TODAY. REMAINS NPO WITH HEPARIN INFUSING. TROPS PEAKED AND TRENDING DOWN.
--- NOTE | 2022-11-14 14:09 | NUR ---
PATIENT TO ANGIOGRAM AT THIS TIME
--- NOTE | 2022-11-14 16:08 | NUR ---
POST COOLER SUPERVISOR. PATIENT RETURNS TO ROOM AT 1457. STATES SHE IS VERY SLEEPY AND HAS SLIGHT HEADACHE. POST ANGIO VITALS IN PROGRESS AND STABLE. TELE READING SB/SR WITH HR 50-60'S. RIGHT RADIAL SITE WNL, NO HEMATOMA. SOFT/NONTENDER. TR BAND AND ARM BOARD IN PLACE. PATIENT ABLE TO VERBALIZE POST ANGIO RADIAL SITE PRECAUTIONS BACK TO THIS RN. BLOOD SUGAR CHECK COMPLETED AND READING 77. PATIENT CURRENTLY EATING AND DRINKING AT THIS TIME. WILL CONTINUE TO CHECK BLOOD SUGARS. NS INFUSING PER EMAR. PATIENT COMPLAINS OF NAUSEA. DR. THOMAS AT NURSE STATION AND VERBAL ORDER FOR ZOFRAN 4MG IV PRN Q6. ORDER IN PLACE AND ADMINISTERED TO PATIENT. STENT CARD IN CHART.
--- NOTE | 2022-11-14 18:29 | NUR ---
SHIFT SUMMARY: NO ACUTE CHANGES. BLOOD SUGAR STABLE. POST OP VITAL SIGNS COMPLETE. TR BAND REMOVED AT THIS TIME. SITE, WNL. TEGADERM DRESSING AND ARM BOARD IN PLACE. NS CONTINUES TO INFUSE PER EMAR. PATIENT LAYING IN BED WATCHING TV.
--- NOTE | 2022-11-14 22:00 | NUR ---
ASSUMPTION OF CARE: ONLY CHANGES FROM PREVIOUS ASSUMPTION OF CARE IS RIGHT RADIAL ANGIO SITE FULLY RECOVERED, PATIENT INCREASED ON BRILLINTA, NO LONGER RUNNING HEPARIN RECIEVED A SINGLE STENT. PATIENT WITH INCREASED EXERTION AND OVERALL IMPROVED WELL BEING/FEELING. PATIENT DENIES CHEST PAIN PRESSURE OR SOB AT REST. WILL CONTINUE TO MONITOR UNTIL SHIFT CHANGE.
[2022-11-15 01:03] VITALS: BP 156/68
--- NOTE | 2022-11-15 01:24 | NUR ---
THIS NURSE IS TAKING OVER CARE AFTER GETTING REPORT FROM SIERRA PALACIOS.
--- NOTE | 2022-11-15 01:28 | NUR ---
TRANSFER OF CARE: ON COMING PHILIP Felipe RN TAKING OVER PATIENT, PATIENT IS SAME CONDITION ASSUMPTION, NO CONCERNS FROM PATIENT OR THIS TYPE PHOTOGRAPHY SUPERVISOR AT THIS TIME.
--- NOTE | 2022-11-15 04:06 | NUR ---
SHIFT SUMMARY: NO SIGNIFICANT CHANGES DURING SHIFT. PATIENT IS A&OX4. VS ARE WNL AND IS ON RA WITH >90% OXYGEN SATS. DENIES NUMBNESS OR TINGLING TO ALL EXTREMITIES. CAN MOVE ALL FINGERS AND TOES WHEN ASKED. HER RIGHT RADIAL ANGIO SITE HAS THE ARM BOARD ON IT. SHE DENIES CHEST PAIN OR PRESSURE OR SOB AT REST. HE IS TOLERATING PO INTAKE AND IS VOIDING. SHE IS A SBA TO THE BATHROOM. PATIENT CALLS APPROPRIATELY. SHE IS LAYING IN BED WITH CALL LIGHT IN REACH.
[2022-11-15 04:22] VITALS: BP 140/73
[2022-11-15 04:56] LABS: BASOPHILS ABSOLUTE AUTO 0.07 K/mm3 (0.00-0.23); BASOPHILS PERCENT AUTO 1 % (0-2); EOSINOPHILS ABSOLUTE AUTO 0.81 K/mm3 (0.00-0.68); EOSINOPHILS PERCENT AUTO 9 % (0-6); Hematocrit 31.2 % (33.0-51.0); Hemoglobin 10.6 g/dL (11.5-16.0); IMMATURE GRAN ABSOLUTE AUTO 0.07 K/mm3 (0.00-0.10); IMMATURE GRAN PERCENT AUTO 1 % (0-1); LYMPHOCYTES ABSOLUTE AUTO 2.51 K/mm3 (0.84-5.20); LYMPHOCYTES PERCENT AUTO 29 % (21-46); MONOCYTES ABSOLUTE AUTO 0.73 K/mm3 (0.16-1.47); MONOCYTES PERCENT AUTO 8 % (4-13); Mean Corpuscular HGB 31.3 pg (26.0-34.0); Mean Corpuscular Volume 92 fL (80-100); Mean Platelet Volume 9.7 fL (9.1-12.4); NEUTROPHILS ABSOLUTE AUTO 4.53 K/mm3 (1.96-9.15); NEUTROPHILS PERCENT AUTO 52 % (41-73); Platelet Count 249 K/mm3 (150-400); RDW Standard Deviation 43.3 fL (35.1-46.3); Red Blood Cell Count 3.39 M/mm3 (3.80-5.20); White Blood Cell Count 8.72 K/mm3 (4.00-11.30)
[2022-11-15 05:42] LABS: Albumin, Blood 2.7 g/dL (3.4-5.0); Albumin/Globulin Ratio 0.7 (0.8-1.8); Bilirubin, Total 0.3 mg/dL (0.1-1.0); Bun/Creatinine Ratio 20.4 (12.0-20.0); Calcium, Blood 9.4 mg/dL (8.5-10.1); Creatinine, Blood 1.08 mg/dL (0.40-1.00); Globulin, Blood 3.7 g/dL (2.2-4.0); Potassium, Blood 3.6 mmol/L (3.5-5.5); Total Protein, Blood 6.4 g/dL (6.4-8.2)
--- NOTE | 2022-11-15 08:00 | NUR ---
Received report from Noc RN. Patient awakeand is able to communicate her needs. TR band site WNL and no hematoma or swelling. Immobilizer in place. She has bilateral 20ga IV's in AC and both WNL's and are flushed and SL. She is sitting up in bed starting breakfast. She is independnet in room. VSS.
[2022-11-15 09:08] VITALS: BP 144/74
--- NOTE | 2022-11-15 09:55 | NUR ---
All three Dr's have been in room to see her and I Called Dr Medrano and he stated that she can go home on aspirin and Brillinta and follow in 4 weeks. She is on RA and sats >90%. She is up in shower now.
--- NOTE | 2022-11-15 11:00 | NUR ---
patient discharged home. IV's pulled intact. She was given written discharge istructions and reviewed new meds, she returned understanding. She was taken in wheelchair and all her personal belongings and went home POV.
== END 2022-11-15 11:00 | disposition home or self-care (01) | DRG 247 ==
LOC: ER 09:04 → PCU 09:05
PROVIDERS: Family Medicine; Internal Medicine Interventional Cardiology; Student in an Organized Health Care Education/Training Program; ADMIT Internal Medicine
PROC: 027034Z Dilation of Coronary Artery, One Artery with Drug-eluting Intraluminal Device, Percutaneous Approach (ICD-10-PCS; principal; 2022-11-14)
PROC: 4A023N7 Measurement of Cardiac Sampling and Pressure, Left Heart, Percutaneous Approach (ICD-10-PCS; 2022-11-14)
PROC: B2111ZZ Fluoroscopy of Multiple Coronary Arteries using Low Osmolar Contrast (ICD-10-PCS; 2022-11-14)
DX: I21.4 Non-ST elevation (NSTEMI) myocardial infarction (principal); I13.0 Hypertensive heart and chronic kidney disease with heart failure and stage 1 through stage 4 chronic kidney disease, or unspecified chronic kidney disease; I50.32 Chronic diastolic (congestive) heart failure; I25.10 Atherosclerotic heart disease of native coronary artery without angina pectoris; Z66 Do not resuscitate; E03.9 Hypothyroidism, unspecified; E11.22 Type 2 diabetes mellitus with diabetic chronic kidney disease; N18.30 Chronic kidney disease, stage 3 unspecified; E11.649 Type 2 diabetes mellitus with hypoglycemia without coma; I48.91 Unspecified atrial fibrillation; Z95.5 Presence of coronary angioplasty implant and graft; Z88.8 Allergy status to other drugs, medicaments and biological substances; Z88.1 Allergy status to other antibiotic agents; I25.2 Old myocardial infarction; Z79.82 Long term (current) use of aspirin; Z79.4 Long term (current) use of insulin; Z79.811 Long term (current) use of aromatase inhibitors; Z79.899 Other long term (current) drug therapy
CPT/HCPCS: 36415; 71046; 76937; 80053; 80061; 82947; 83036; 83690; 83735; 83880; 84443; 84484; 85025; 85347; 85520; 85610; 85730; 93005; 93010; 93306; 93458; 96365; 96375; 96376; 99152; 99153; 99285-25; A9270; C1769; C1874; C1887; C1894; C9600; G0378; J1644; J1815; J2250; J2405; J3010; J3246; J7030; J7050; Q9967

== ENCOUNTER 2023-10-24 11:56 | Emergency (ER) | payer OTHER ==
[~2023-10-24] VITALS: Ht 170.2 cm; Wt 88.0 kg
[~2023-10-24 11:56] MED LIST changes: +ALLO100 PO; +FURO20 PO; +INSULANI SC; +JARDIANCE10 MG PO; +LISINOPRIL (ZESTRIL) PO; +METF500 PO; +PRAVASTATIN SOD40 MG PO
[2023-10-24 12:06] VITALS: BP 171/74
[2023-10-24 16:03] LABS: BASOPHILS ABSOLUTE AUTO 0.05 K/mm3 (0.00-0.23); BASOPHILS PERCENT AUTO 1 % (0-2); EOSINOPHILS ABSOLUTE AUTO 0.94 K/mm3 (0.00-0.68); EOSINOPHILS PERCENT AUTO 12 % (0-6); Hematocrit 35.9 % (33.0-51.0); IMMATURE GRAN ABSOLUTE AUTO 0.05 K/mm3 (0.00-0.10); IMMATURE GRAN PERCENT AUTO 1 % (0-1); LYMPHOCYTES ABSOLUTE AUTO 1.86 K/mm3 (0.84-5.20); LYMPHOCYTES PERCENT AUTO 23 % (21-46); MONOCYTES ABSOLUTE AUTO 0.52 K/mm3 (0.16-1.47); MONOCYTES PERCENT AUTO 7 % (4-13); Mean Corpuscular HGB 31.6 pg (26.0-34.0); Mean Corpuscular HGB Conc 33.4 g/dL (31.5-36.5); Mean Corpuscular Volume 95 fL (80-100); Mean Platelet Volume 9.4 fL (9.1-12.4); NEUTROPHILS ABSOLUTE AUTO 4.61 K/mm3 (1.96-9.15); NEUTROPHILS PERCENT AUTO 57 % (41-73); Platelet Count 329 K/mm3 (150-400); RDW Coefficient Variation 13.7 % (11.7-14.2); RDW Standard Deviation 46.3 fL (35.1-46.3); White Blood Cell Count 8.03 K/mm3 (4.00-11.30)
[2023-10-24 16:22] LABS: Albumin, Blood 3.4 g/dL (3.4-5.0); Albumin/Globulin Ratio 0.8 (0.8-1.8); Bilirubin, Total 0.2 mg/dL (0.1-1.0); Calcium, Blood 9.1 mg/dL (8.5-10.1); Creatinine, Blood 1.16 mg/dL (0.40-1.00); Globulin, Blood 4.4 g/dL (2.2-4.0); Potassium, Blood 4.1 mmol/L (3.5-5.5); Total Protein, Blood 7.8 g/dL (6.4-8.2)
== END 2023-10-24 17:17 | disposition home or self-care (01) ==
LOC: ER 11:56
PROVIDERS: Student in an Organized Health Care Education/Training Program
DX: L29.9 Pruritus, unspecified (principal); E11.65 Type 2 diabetes mellitus with hyperglycemia; I10 Essential (primary) hypertension; I25.10 Atherosclerotic heart disease of native coronary artery without angina pectoris; I25.2 Old myocardial infarction; Z88.8 Allergy status to other drugs, medicaments and biological substances; Z88.1 Allergy status to other antibiotic agents; Z79.890 Hormone replacement therapy; Z79.82 Long term (current) use of aspirin; Z79.02 Long term (current) use of antithrombotics/antiplatelets; Z79.4 Long term (current) use of insulin; Z79.899 Other long term (current) drug therapy
CPT/HCPCS: 36415; 80053; 85025; 85651; 86140; 99283

== ENCOUNTER 2023-11-08 10:29 | Inpatient (IN) | payer OTHER ==
[~2023-11-08] VITALS: Ht 172.7 cm; Wt 86.1 kg
[2023-11-10 11:47] VITALS: BP 149/72
== END 2023-11-10 13:47 | disposition home or self-care (01) | DRG 282 ==
LOC: ER 10:29 → PCU 13:56
PROVIDERS: ADMIT Internal Medicine
DX: I48.0 Paroxysmal atrial fibrillation (principal); I21.A1 Myocardial infarction type 2; E11.22 Type 2 diabetes mellitus with diabetic chronic kidney disease; R21 Rash and other nonspecific skin eruption; N18.30 Chronic kidney disease, stage 3 unspecified; E11.65 Type 2 diabetes mellitus with hyperglycemia; I25.10 Atherosclerotic heart disease of native coronary artery without angina pectoris; I12.9 Hypertensive chronic kidney disease with stage 1 through stage 4 chronic kidney disease, or unspecified chronic kidney disease; E66.9 Obesity, unspecified; Z68.30 Body mass index [BMI] 30.0-30.9, adult; K04.7 Periapical abscess without sinus; I25.2 Old myocardial infarction; Z95.5 Presence of coronary angioplasty implant and graft; Z88.1 Allergy status to other antibiotic agents; Z88.8 Allergy status to other drugs, medicaments and biological substances; Z79.4 Long term (current) use of insulin; Z79.82 Long term (current) use of aspirin; Z79.890 Hormone replacement therapy; Z79.899 Other long term (current) drug therapy

== ENCOUNTER 2025-01-17 08:49 | Day surgery (SDC) | payer OTHER ==
[~2025-01-17] VITALS: Ht 164.5 cm; Wt 73.3 kg
[2025-01-17] VITALS (18 sets, daily range): BP systolic 133–166; BP diastolic 70–117
[~2025-01-17 08:49] MED LIST changes: +Amoxicillin500 MG PO; +Aspir 8181 MG PO; +ELIQUIS5 M2 PO; +HUMALOG KW100 UNIT/1 SC; +MOUNJARO7.5 MG/0.5 SC; +Triamcinolone A15 G2 TOP
--- NOTE | 2025-01-17 11:17 | NUR ---
01/17/25 Clare Tirado CONFIRMED AND REVIEWED H&P, MEDCICATIONS, ALLERGIES, MEDICAL HISTORY, RESPIRATORY HISTORY, VITAL SIGNS, 3-LEAD EKG, CONSENTS, AND PHYSICIAN ORDERS. PATIENT CONFIRMS NPO STATUS AND AGREES WITH SCHEDULED PROCEDURE. MONITOR INTACT WITH CONTINUOUS PULSE OXIMETRY, CAPNOGRAPHY, 3-LEAD EKG, INTERMITTENT BP. SUPPLEMENTAL O2 TO BE TITRATED THROUGHOUT PROCEDURE TO MAINTAIN O2 SATURATION ABOVE 90%. MALLAMPATI CLASS 3 AIRWAY: VISUALIZATION OF ONLY THE BASE OF THE UV[place].
== END 2025-01-17 23:00 | disposition home or self-care (01) ==
LOC: ORSCMMR 08:49 → ORD 10:30 → ORSCMMR 23:00
DX: K92.1 Melena (principal); D12.2 Benign neoplasm of ascending colon; D12.4 Benign neoplasm of descending colon; K63.5 Polyp of colon; E11.9 Type 2 diabetes mellitus without complications; I48.91 Unspecified atrial fibrillation; I25.10 Atherosclerotic heart disease of native coronary artery without angina pectoris; E78.00 Pure hypercholesterolemia, unspecified; Z79.02 Long term (current) use of antithrombotics/antiplatelets; Z79.85 Long-term (current) use of injectable non-insulin antidiabetic drugs; Z79.01 Long term (current) use of anticoagulants; Z79.899 Other long term (current) drug therapy
CPT/HCPCS: 82947; 88305; J2704; J7120